=== PATIENT | male | born 1960 | race Caucasian/White ===

== ENCOUNTER 2023-09-04 05:04 | Observation (INO) ==
[2023-09-04] MEDS ORDERED: Vancomycin 1,750 MG in NS 0.9% 250 ml 250 ML IVPB SCH (06:00)
[2023-09-04] MEDS: Piperacillin/Tazobac 3.375 BAG 3.375 GM/100 ML BAG IV ONE (06:20)
[2023-09-04] MEDS: Ondansetron 4 mg VIAL 2 MG/ML 2 ml VIAL IV ONE (06:31)
[2023-09-04] MEDS: Lactated Ringers SEPSIS* BAG 2,190 ML IV ONE (06:31)
[2023-09-04] MEDS: Vancomycin 1,750 MG in NS 0.9% 500 ml BAG 500 ML IVPB ONE (06:39)
[2023-09-04 06:43] LABS: Activated Partial Thrombo Time 31.6 seconds (26.0-38.0); INR 1.06 (0.83-1.13)
[2023-09-04 06:47] LABS: ABS Eosinophils 0.1 10^3/uL (0.0-0.5); ABS Lymphocytes 0.4 10^3/uL (1.0-4.8); ABS Monocytes 0.4 10^3/uL (0.0-1.1); ABS Neutrophils 5.6 10^3/uL (1.5-7.6); Eosinophil % 0.9 %; Hematocrit 43.6 % (38-53); Hemoglobin 15.2 g/dL (13.2-16.3); Lymphocyte % 6.8 %; Mean Corpuscular Hemoglobin 31.4 pg (27-33); Mean Corpuscular Hgb Conc 34.8 g/dL (31-36); Mean Corpuscular Volume 90.2 fL (80-97); Mean Platelet Volume 7.3 fL (7.5-11.2); Platelet Count 186 10^3/uL (150-450); Red Blood Count 4.83 10^6/uL (4.06-5.63); Red Cell Distribution Width 13.6 % (12-17); White Blood Count 6.5 10^3/uL (3.6-10.2)
[2023-09-04 07:11] LABS: High Sens Troponin Baseline < 3 pg/mL (<20)
[2023-09-04 07:19] LABS: ALT 22 U/L (7-52); AST 17 U/L (13-39); Albumin 3.9 g/dL (3.2-5.2); Albumin/Globulin Ratio 1.8 (1-3); Alkaline Phosphatase 81 U/L (35-149); Anion Gap 9 mmol/L (2-16); Blood Urea Nitrogen 24 mg/dL (6-24); C Reactive Protein 16.65 mg/L (<8.01); CO2 Carbon Dioxide 24 mmol/L (22-32); Calcium 8.2 mg/dL (8.6-10.3); Chloride 104 mmol/L (101-111); Creatinine, Serum 0.82 mg/dL (0.67-1.17); Globulin 2.2 g/dL (2-4); Glucose 153 mg/dL (70-100); Lipase 19 U/L (11.0-82.0); Potassium 3.8 mmol/L (3.5-5.0); Sodium 137 mmol/L (135-145); Total Bilirubin 0.7 mg/dL (0.2-1.0); Total Protein 6.1 g/dL (6.4-8.9); eGFR CKD-EPI 98.7 (>60)
[2023-09-04 08:17] LABS: High Sensitivity Troponin 1 Hr < 3 pg/mL (<20)
[2023-09-04] MEDS: dilTIAZem 30 MG TAB PO ONE (08:46)
[2023-09-04 08:53] LABS: Urine Appearance Clear; Urine Bilirubin Negative (Negative); Urine Blood Negative (Negative); Urine Color Light-Yellow; Urine Glucose Negative (Negative); Urine Ketones Negative (Negative); Urine Nitrite Negative (Negative); Urine Protein Negative (Negative); Urine Specific Gravity 1.016 (1.002-1.030); Urine Urobilinogen Negative (Negative); Urine pH 5.5 (5.0-8.0)
[2023-09-04] MEDS ORDERED: Ondansetron 4 mg VIAL 2 MG/ML 2 ml VIAL IV PRN (11:25)
[2023-09-04] MEDS ORDERED: Enoxaparin 40 MG/0.4 ML SYR SUBCUT SCH (12:00)
[2023-09-04] MEDS: Lactated Ringers 1000 ml BAG 1,000 ML IV ONE (14:33)
[2023-09-04] MEDS ORDERED: Sulfur Hexaflouride MICROSPHR 25 MG VIAL ONE (15:52)
[2023-09-04] MEDS: Enoxaparin 40 MG/0.4 ML SYR SUBCUT SCH (19:39)
[2023-09-05 05:10] VITALS: BP 103/69
[2023-09-05] MEDS: dilTIAZem 30 MG TAB PO SCH (05:59)
[2023-09-05 06:03] LABS: ABS Basophils 0.1 10^3/uL (0.0-0.1); ABS Eosinophils 0.4 10^3/uL (0.0-0.5); ABS Lymphocytes 1.4 10^3/uL (1.0-4.8); ABS Monocytes 0.6 10^3/uL (0.0-1.1); ABS Neutrophils 2.4 10^3/uL (1.5-7.6); ABS Nucleated RBC 0.01 10^3/ul; Eosinophil % 7.7 %; Hematocrit 39.8 % (38-53); Hemoglobin 13.9 g/dL (13.2-16.3); Lymphocyte % 29.3 %; Mean Corpuscular Hemoglobin 31.4 pg (27-33); Mean Corpuscular Volume 89.8 fL (80-97); Mean Platelet Volume 7.2 fL (7.5-11.2); Nucleated Red Blood Cells % 0.3 %/100WBC (0.0-0.8); Platelet Count 198 10^3/uL (150-450); Red Blood Count 4.43 10^6/uL (4.06-5.63); Red Cell Distribution Width 13.6 % (12-17); White Blood Count 4.8 10^3/uL (3.6-10.2)
[2023-09-05 06:35] LABS: Anion Gap 4 mmol/L (2-16); Blood Urea Nitrogen 15 mg/dL (6-24); CO2 Carbon Dioxide 27 mmol/L (22-32); Calcium 8.1 mg/dL (8.6-10.3); Chloride 107 mmol/L (101-111); Creatinine, Serum 0.81 mg/dL (0.67-1.17); Glucose 100 mg/dL (70-100); Magnesium 2.1 mg/dL (1.9-2.7); Sodium 138 mmol/L (135-145); eGFR CKD-EPI 99.1 (>60)
[2023-09-05 07:01] LABS: Vitamin B12 > 1450 pg/mL (180-914)
== END 2023-09-05 10:40 | disposition home or self-care (01) ==
LOC: ED 05:04 → EDHOLD 05:04 → MEDTELE 09:45
PROVIDERS: ADMIT Internal Medicine; ATTEND Internal Medicine